=== PATIENT | female | born 1995 | race Caucasian/White ===

== ENCOUNTER 2017-05-09 02:28 | Inpatient (IN) | payer BC ==
[~2017-05-09] VITALS: Ht 165.1 cm; Wt 73.7 kg
[2017-05-09 03:06] VITALS: Ht 165.1 cm; Wt 73.7 kg
[2017-05-09 03:07] VITALS: BP 122/76; PULSE 93; RESP 18
[2017-05-09] MEDS ORDERED: no home medications (03:10)
[2017-05-09] MEDS ORDERED: LACTATED RINGER'S 1,000 ML IV SCH (03:46)
[2017-05-09 03:49] LABS: ADD UMIC NO; UR BILIRUBIN (Dip) NEGATIVE (NEGATIVE); UR BLOOD (Dip) NEGATIVE (NEGATIVE); UR CLARITY CLEAR (CLEAR); UR COLOR LT. YELLOW (YELLOW); UR GLUCOSE (Dip) NEGATIVE (NEGATIVE); UR KETONES (Dip) NEGATIVE (NEGATIVE); UR LEUKOCYTE ESTERASE (Dip) NEGATIVE (NEGATIVE); UR NITRITE (Dip) NEGATIVE (NEGATIVE); UR TOTAL PROTEIN (Dip) NEGATIVE (NEGATIVE); UR UROBILINOGEN (Dip) 0.2 E.U./dL (0.1-1.0)
[2017-05-09] MEDS ORDERED: LIDOCAINE 1% (MPF) 30 ML INJ INJ PRN (04:00)
[2017-05-09] MEDS ORDERED: IBUPROFEN 600 MG TAB PO PRN (04:00)
[2017-05-09] MEDS ORDERED: BUTORPHANOL 2 MG INJ IV PRN (04:00)
[2017-05-09] MEDS ORDERED: AMPICILLIN 2 GM/NS (PMX) 100 ML IV ONE (04:00)
[2017-05-09] MEDS ORDERED: MISOPROSTOL 200 MCG TAB PR PRN ×2 (04:00→12:00)
[2017-05-09] MEDS ORDERED: METHYLERGONOVINE 0.2 MG INJ IM PRN ×2 (04:00→12:00)
[2017-05-09] MEDS ORDERED: OXYTOCIN 30 UNITS/LR 500 ML IV SCH ×2 (04:00)
[2017-05-09] MEDS ORDERED: OXYTOCIN 30 UNITS/LR 500 ML IV PRN ×2 (04:00→12:00)
[2017-05-09] MEDS ORDERED: CARBOPROST 250 MCG INJ IM PRN ×2 (04:00→12:00)
[2017-05-09] MEDS ORDERED: LACTATED RINGER'S 1,000 ML IV PRN (04:00)
--- NOTE | 2017-05-09 04:09 | RADRPT ---
PROCEDURE: Obstetrical ultrasound, limited. CLINICAL INDICATION: Pelvic pain. TECHNIQUE: Multiple sonographic images of the pelvis were obtained using transabdominal technique . Images were obtained with flaherty scale and color Doppler. The images were reviewed on a PACS works tation. COMPARISON: No prior studies are available for comparison. FINDINGS: There is a single living intrauterine gestation with the fetus in a vertex presentation. hear t tones of 150 beats per minute are identified. The placenta is posterior in location, grade 2. Th ere is no evidence of placenta previa or abruption. Measurements were made in order to determine age. The results are as follows: BPD =9.81 cm HC =34.59 cm AC =36.08 cm FL =7.85 cm. Estimated gestational age of approximately 40 weeks and 1 day. The EFW = 3977 +/- 597 grams. IMPRESSION: Single viable intrauterine gestation of approximately 40 weeks and 1 day. .Loco Beth MD, Date Time Electronically viewed and signed by .Loco Beth MD, MD on 05/09/2017 04:09 .T/
[2017-05-09 04:14] LABS: BARBITURATES Negative (NEGATIVE); BENZODIAZEPINES Negative (NEGATIVE); CANNABINOIDS Negative (NEGATIVE); COCAINE Negative (NEGATIVE); OPIATES Negative (NEGATIVE)
[2017-05-09 05:24] LABS: ADD SCAN DIFF NO
[2017-05-09 05:43] LABS: INR 0.88; PROTIME 11.9 Sec (12.2-14.2); PT RATIO 0.9
[2017-05-09 05:44] LABS: PARTIAL THROMBOPLASTIN TIME 26.9 Sec (25.0-35.0)
[2017-05-09 05:54] LABS: BASOPHILS % 0.3 % (0.0-2.0); EOSINOPHILS # 0.1 10^3/ul (0.0-0.5); EOSINOPHILS % 0.9 % (0.0-7.0); HEMATOCRIT 31.3 % (37.0-47.0); HEMOGLOBIN 9.7 g/dl (12.0-16.0); LYMPHOCYTES # 2.1 10^3/ul (0.8-2.9); LYMPHOCYTES % 18.1 % (15.0-51.0); MEAN CORPUSCULAR HEMOGLOBIN 24.4 pg (29.0-33.0); MEAN CORPUSCULAR VOLUME 78.8 fl (82.0-101.0); MEAN PLATELET VOLUME 10.7 fl (7.4-10.4); MONOCYTE # 0.9 10^3/ul (0.3-0.9); MONOCYTES % 7.8 % (0.0-11.0); NEUTROPHIL # 8.4 10^3/ul (1.6-7.5); NEUTROPHILS % 72.3 % (39.0-77.0); PLATELET COUNT 286 10^3/UL (140-415); RED BLOOD COUNT 3.97 10^6/ul (4.20-5.40); RED CELL DISTRIBUTION WIDTH 16.2 % (11.5-14.5); WHITE BLOOD COUNT 11.6 10^3/ul (4.8-10.8)
[2017-05-09] MEDS ORDERED: MINERAL OIL LIGHT 10 ML VIAL TOP PRN (06:00)
--- NOTE | 2017-05-09 07:33 | HP ---
DATE OF ADMISSION: 05/09/2017 HISTORY OF PRESENT ILLNESS: The patient is a 21-year-old G4, P3 who presents at 40 weeks for ultras ound done today complaining of uterine contractions. The patient had no care during her a nd presents to L [facility], complaining of uterine contractions. PAST MEDICAL HISTORY: None. PAST SURGICAL HISTORY: None. MEDICATIONS: None. PAST OBSTETRICAL HISTORY: x3 in the past. PHYSICAL EXAMINATION: VITAL SIGNS: Stable. HEART: Regular rate, regular rhythm. ____ ABDOMEN: Soft, nontender. No rebound or guarding. Fundal height is 38 cm. EXTREMITIES: There is no edema. VAGINAL: The patient is 4 to 5 cm. NST is reactive. IMPRESSION: Intrauterine at 40 weeks based on ultrasound done today. The patient with no care. The patient in active labor. The patient will be admitted for labor management. Dictated By: REMEDIOS SANTANA MD /NTS Conf#: [id number] DID#: [id number]
[2017-05-09] MEDS ORDERED: FENTAnyl 2MCG/ML-ROPIV 0.2% 100 ML ONE (07:36)
[2017-05-09] MEDS ORDERED: AMPICILLIN 1 GM/NS (PMX) 50 ML IV SCH (08:00)
[2017-05-09] MEDS ORDERED: EPHEDrine SULFATE 50 MG/5 ML SYG IV PRN (08:30)
[2017-05-09] MEDS ORDERED: ONDANSETRON 4 MG INJ IV PRN (08:30)
[2017-05-09] MEDS ORDERED: FENTAnyl 2MCG/ML-ROPIV 0.2% 100 ML BAG EPI SCH (08:30)
[2017-05-09] MEDS ORDERED: NALOXONE (0.4 MG/ML) INJ IV PRN (08:30)
[2017-05-09] MEDS ORDERED: LACTATED RINGER'S 1,000 ML IV* SCH (11:59)
[2017-05-09] MEDS ORDERED: OXYCODONE/ASPIRIN (4.88/325) TAB PO PRN (12:00)
--- NOTE | 2017-05-09 12:06 | LDN ---
Date/Time of Note Date/Time of Note DATE: 05/09/17 TIME: 12:04 Delivery Summary of a viable baby boy over an intact perineum and weighing 3830 grams, or 8 # 7oz, 22" long, and with Apgars of 9/9. Weeks of Gestation 40w 1d Placenta Delivered: Spontaneously Meconium: none Episiotomy: No Estimated blood loss: 150 Sponge & Needle done & correct: Yes All needle counts correct: Yes Any foreign bodies felt in the: No (vagina) Problems: Infant Delivery Information Sex Sex: male Apgars 1 Minute: 9 5 Minute: 9 Suctioning Nose & mouth suctioned at mariela: Yes Delee suction performed: No Umbilical Cord Umbilical cord with: 3 Vessels Cord presentations: no nuchal cord Cord Blood was obtained: Yes Mother & Baby Disposition Disposition Mom & Baby to Maternity; Good: Yes Baby to NICU: No CASSIA INGRAM MD May 09, 2017 12:06
[2017-05-09] MEDS: IBUPROFEN 600 MG TAB PO SCH ×2 (12:39→17:56)
[2017-05-09 13:35] VITALS: BP 118/67; PULSE 77; RESP 16
[2017-05-09 19:40] VITALS: BP_SYST 110; PULSE 78; RESP 18
[2017-05-10] MEDS: IBUPROFEN 600 MG TAB PO SCH ×5 (00:02→23:39)
[2017-05-10 04:00] VITALS: BP 100/53; PULSE 68; RESP 18
[2017-05-10 07:35] LABS: ADD SCAN DIFF NO
[2017-05-10 07:45] LABS: BASOPHILS % 0.3 % (0.0-2.0); EOSINOPHILS # 0.1 10^3/ul (0.0-0.5); EOSINOPHILS % 1.1 % (0.0-7.0); HEMATOCRIT 26.5 % (37.0-47.0); HEMOGLOBIN 8.4 g/dl (12.0-16.0); LYMPHOCYTES % 16.7 % (15.0-51.0); MEAN CORPUSCULAR HEMOGLOBIN 24.9 pg (29.0-33.0); MEAN CORPUSCULAR HGB CONC 31.7 g/dl (32.0-37.0); MEAN CORPUSCULAR VOLUME 78.4 fl (82.0-101.0); MEAN PLATELET VOLUME 10.7 fl (7.4-10.4); MONOCYTE # 1.2 10^3/ul (0.3-0.9); MONOCYTES % 10.2 % (0.0-11.0); NEUTROPHIL # 8.7 10^3/ul (1.6-7.5); NEUTROPHILS % 71.3 % (39.0-77.0); PLATELET COUNT 258 10^3/UL (140-415); RED BLOOD COUNT 3.38 10^6/ul (4.20-5.40); RED CELL DISTRIBUTION WIDTH 16.3 % (11.5-14.5); WHITE BLOOD COUNT 12.2 10^3/ul (4.8-10.8)
[2017-05-10 08:25] VITALS: BP 112/61; PULSE 66; RESP 20
--- NOTE | 2017-05-10 08:49 | QN ---
Documentation Comment PPD#1- Laborist Rounding Note Pt doing well. Liliya POs, ambulating and voiding w/o difficulty. BF w/o difficulty. Worried that she hasn't passed stool since admission. Feels a bit constipated. VS 98.1 100/53 68 18 Gen: well appearing, NAD CV: RRR, nl s1s2 Resp: CTAB Abd: soft, NT, FF at umbilicus Katrin: mod lochia rubra Ext: symmetric, no edema, nontender Labs: Admission Hgb 9.7-> EBL 150ml -> PPD#1 Hgb 8.4 A/P: PPD#1 progressing towards milestones -continue routine care - support -asymptomatic anemia, will likely d/c home with supplemental iron -senna/docusate BID -anticipate d/c home PPD#2 HONEY ELLSWORTH MD May 10, 2017 08:49
[2017-05-10] MEDS: SENNA/DOCUSATE NA (8.6MG/50MG) TAB PO SCH ×2 (12:13→20:53)
[2017-05-10 16:00] VITALS: BP 123/74; PULSE 73; RESP 19
[2017-05-10 20:00] VITALS: BP 127/73; PULSE 79; RESP 18
[2017-05-11] VITALS: BP 108/57; PULSE 81; RESP 19
[2017-05-11 04:00] VITALS: BP 105/73; PULSE 70; RESP 19
[2017-05-11] MEDS: IBUPROFEN 600 MG TAB PO SCH ×2 (05:41→11:23)
[2017-05-11 08:20] VITALS: BP 124/73; PULSE 72; RESP 20
[2017-05-11] MEDS ORDERED: DIPHTH/TET/ACEL PERTUSS (ADULT) 0.5 ML VIAL IM* ONE (09:00)
[2017-05-11] MEDS: SENNA/DOCUSATE NA (8.6MG/50MG) TAB PO SCH (09:20)
--- NOTE | 2017-05-11 11:07 | DS ---
Date/Time of Note Date/Time of Note DATE: 05/11/17 TIME: 11:04 Obstetrical Discharge Record Final Diagnosis Final Diagnosis: Term delivered Vaginal Delivery Obstetrical Delivery: Spontaneous Condition on Discharge Physical Assessment Voiding: Yes Bowel Movement: Yes Breast: Soft, non-tender Fundus: Firm Episiotomy: Current Medications Medications (Trade) Dose Ordered Sig/Sarbjit Route PRN Reason Start Time Stop Time Status Last Admin Dose Admin Lactated Ringer's 1,000 ml @ 125 mls/hr Q8H IV 05/09/17 03:46 05/09/17 12:03 DC 05/09/17 04:42 Ampicillin 100 ml @ 100 mls/hr ONCE ONCE IV 05/09/17 04:00 05/09/17 04:59 DC 05/09/17 05:09 Ampicillin (Ampicillin 1 Gm/ NS (Pmx)) 50 ml @ 100 mls/hr Q4H IV 05/09/17 08:00 05/09/17 12:03 DC 05/09/17 09:13 Butorphanol Tartrate (Stadol) 2 mg Q2H PRN IV PAIN 05/09/17 04:00 05/09/17 12:04 DC 05/09/17 05:08 Lidocaine 30 ml 30 ml ONCE PRN INJ EPISIOTOMY/TEARING 05/09/17 04:00 05/09/17 12:04 DC Oxytocin/Lactated Ringer's 500 ml @ 125 mls/hr ONCE -MAY REPEAT X1 IV 05/09/17 04:00 05/09/17 12:04 DC 05/09/17 11:51 Oxytocin/Lactated Ringer's 500 ml @ 125 mls/hr ONCE IV 05/09/17 04:00 05/09/17 12:04 DC Ibuprofen 600 mg 600 mg ONCE PRN PO Mild Pain (Pain Score 1-3) 05/09/17 04:00 05/09/17 12:04 DC Lactated Ringer's 1,000 ml @ 2,000 mls/hr Q30M PRN IV PRE-EPIDURAL BOLUS 05/09/17 04:00 05/09/17 12:04 DC 05/09/17 07:09 Oxytocin/Lactated Ringer's 500 ml @ 0 mls/hr ONCE PRN IV For Hemorrhage Management 05/09/17 04:00 05/09/17 12:04 DC Methylergonovine Maleate (Methergine) 0.2 mg ONCE PRN IM VAGINAL BLEEDING 05/09/17 04:00 05/09/17 12:04 DC Carboprost Tromethamine (Hemabate) 250 mcg ONCE PRN IM VAGINAL BLEEDING 05/09/17 04:00 05/09/17 12:04 DC Misoprostol (Cytotec) 1,000 mcg ONCE PRN IA VAGINAL BLEEDING 05/09/17 04:00 05/09/17 12:04 DC Mineral Oil ONCE PRN TOP Vaginal lubrication 05/09/17 06:00 05/09/17 12:03 DC Fentanyl/ Ropivacaine 100 ml @ STK-MED ONCE .ROUTE 05/09/17 07:36 05/09/17 07:37 DC Naloxone HCl (Narcan) 0.1 mg Q2M PRN IV FOR RESP RATE 8 OR LESS 05/09/17 08:30 05/09/17 12:04 DC Ondansetron HCl (Zofran Inj) 4 mg Q6H PRN IV NAUSEA AND/OR VOMITING 05/09/17 08:30 05/09/17 12:04 DC Fentanyl/ Ropivacaine 100 ml EPIDURAL INFUSION EPI 05/09/17 08:30 05/09/17 12:04 DC Ephedrine Sulfate 5 mg 5 mg PRN PRN IV BLOOD PRESSURE SUPPORT 05/09/17 08:30 05/09/17 12:04 DC Lactated Ringer's (Lr) 1,000 ml @ 125 mls/hr Q8H IV* 05/09/17 11:59 05/09/17 21:05 DC Ibuprofen (Motrin) 600 mg Q6 PO 05/09/17 12:00 05/11/17 05:41 Oxycodone/Aspirin (Percodan) 1 tab Q3H PRN PO PAIN LEVEL 1-5 05/09/17 12:00 Diphtheria/ Tetanus/Acell Pertussis 0.5 ml 0.5 ml ONCE ONCE IM* 05/11/17 09:00 05/11/17 09:01 DC Oxytocin/Lactated Ringer's 500 ml @ 0 mls/hr ONCE PRN IV For Hemorrhage Management 05/09/17 12:00 Methylergonovine Maleate (Methergine) 0.2 mg ONCE PRN IM VAGINAL BLEEDING 05/09/17 12:00 Carboprost Tromethamine (Hemabate) 250 mcg ONCE PRN IM VAGINAL BLEEDING 05/09/17 12:00 Misoprostol (Cytotec) 1,000 mcg ONCE PRN IA VAGINAL BLEEDING 05/09/17 12:00 Senna/Docusate Sodium (Senokot-S) 1 tab BID PO 05/10/17 10:30 05/11/17 09:20 Calf Tenderness: No Patient Condition: Good DAVID HUDDLESTON MD May 11, 2017 11:07
[2017-05-12 13:58] LABS: RUBELLA ANTIBODY - IGG 1.83 index
== END 2017-05-11 15:00 | disposition home or self-care (01) | DRG 766 ==
LOC: OBT 02:28 → L-D 02:30 → OBT 03:51 → L-D 03:53 → PP1 13:37
PROC: 10D00Z1 Extraction of Products of Conception, Low, Open Approach (ICD-10-PCS; principal; 2017-05-09)
PROC: 3E00X4Z Introduction of Serum, Toxoid and Vaccine into Skin and Mucous Membranes, External Approach (ICD-10-PCS; 2017-05-11)
DX: O48.0 Post-term pregnancy (principal); Z23 Encounter for immunization; Z3A.40 40 weeks gestation of pregnancy; Z37.0 Single live birth
CPT/HCPCS: 62319; 76815; 80307; 81003; 85025; 85610; 85730; 86592; 86762; 86900; 86901; 87340; 90715; G0463; J0290; J0595; J3010; J7120